=== PATIENT | male | born 1940 | race Caucasian/White ===

== ENCOUNTER 2017-05-15 23:11 | Emergency (ER) | payer OTHER ==
[~2017-05-15] VITALS: Ht 188 cm; Wt 65.8 kg
[2017-05-15 23:17] VITALS: BP 137/70
[2017-05-15] MEDS ORDERED: LISINOPRIL2.5 M1 PO (23:21)
[2017-05-15] MEDS ORDERED: AMARYL4 MG PO (23:21)
[2017-05-15] MEDS ORDERED: LOVASTATIN40 MG PO (23:21)
[2017-05-15] MEDS ORDERED: NORVASC5 MG PO (23:21)
[2017-05-15] MEDS ORDERED: TRADJENTA5 MG (23:21)
[2017-05-16 00:13] LABS: URINE BILIRUBIN NEGATIVE (Negative); URINE BLOOD NEGATIVE (Negative); URINE CLARITY CLEAR; URINE COLOR YELLOW; URINE GLUCOSE-RANDOM* 1+ (Negative); URINE KETONES NEGATIVE (Negative); URINE LEUKOCYTES-REFLEX NEGATIVE (Negative); URINE NITRITE-REFLEX NEGATIVE (Negative); URINE PROTEIN (DIPSTICK) NEGATIVE (Negative); URINE UROBILINOGEN 0.2 E.U./dl (0.2-1.0)
== END 2017-05-16 00:29 | disposition home or self-care (01) ==
LOC: ER 23:11
PROVIDERS: Emergency Medicine
DX: E11.65 Type 2 diabetes mellitus with hyperglycemia (principal); T38.3X5A Adverse effect of insulin and oral hypoglycemic [antidiabetic] drugs, initial encounter; Y92.9 Unspecified place or not applicable; I10 Essential (primary) hypertension; E78.00 Pure hypercholesterolemia, unspecified; M54.30 Sciatica, unspecified side